=== PATIENT | male | born 1990 | race African-American/Black ===

== ENCOUNTER 2022-04-09 11:19 | Emergency (ER) | payer OTHER, MEDICAID ==
[~2022-04-09] VITALS: Ht 185.4 cm; Wt 90.9 kg
[2022-04-09 11:29] VITALS: TEMP 98
[2022-04-09 12:12] LABS: BASO % 0.5 % (0.0-2.0); EOS # 0.1 K/mm3 (0.0-0.7); GRAN # 3.7 K/mm3 (1.4-6.5); GRAN % 64.2 % (42.2-75.2); HEMATOCRIT 45.4 % (42.0-52.0); HEMOGLOBIN 16.5 g/dl (13.5-18.0); LYMPH # 1.5 K/mm3 (1.2-3.4); LYMPH % 25.1 % (20.0-51.0); MEAN CELL VOLUME 79 fl (80.0-100.0); MEAN CORPUSCULAR HEMOGLOBIN 29 pg (27-31); MEAN CORPUSCULAR HGB CONC 36 g/dl (33.0-37.0); MONO # 0.5 K/mm3 (0.1-0.6); MONO % 8.9 % (1.7-9.3); PLATELET COUNT 232 K/mm3 (130-400); RED BLOOD COUNT 5.72 M/mm3 (4.20-5.60); REDCELL DISTRIBUTION WIDTH-CV 11.9 % (11.5-14.5)
[2022-04-09 12:25] LABS: ALBUMIN 4.1 gm/dL (3.5-5.0); BILIRUBIN,TOTAL 1.9 mg/dL (0.2-1.2); CALCIUM 9.4 mg/dL (8.4-10.2); POTASSIUM 3.8 mmol/L (3.5-4.5); TOTAL PROTEIN 6.9 gm/dL (6.2-8.1)
[2022-04-09 13:00] VITALS: BP 133/73; PULSE 83
== END 2022-04-09 13:00 | disposition home or self-care (01) ==
LOC: COL.ER 11:19
PROVIDERS: Family Medicine
DX: E86.0 Dehydration (principal); R00.0 Tachycardia, unspecified; R73.9 Hyperglycemia, unspecified
CPT/HCPCS: J7030